=== PATIENT | female | born 1960 | race Caucasian/White ===

== ENCOUNTER 2018-07-20 11:07 | Day surgery (SDC) | payer OTHER ==
[2018-07-12 16:08] VITALS: BMI 28.3
[2018-07-20] MEDS ORDERED: PROPOFOL 20 ML ONE ×2 (12:48)
[2018-07-20 14:24] VITALS: TEMP 97.6
[2018-07-20 14:36] VITALS: BP 129/75; PULSE 62
--- NOTE | 2018-07-21 16:35 | PATH ---
Surgical Pathology Report Patient Name: ADRIAN REYES [facility]. Rec. #: [id number] /Age/Gender: 1960 (Age: 58) / F Account: [id number] Location: [facility] AMB[facility] Taken: 07/20/2018 Received: 07/20/2018 Reported: 07/21/2018 Physicians: Elina Steward M.D. Specimen(s) Received A: RIGHT COLON B: TRANSVERSE COLON C: TRANSVERSE COLON D: DESCENDING COLON E: RECTUM Clinical History Diarrhea Postoperative diagnosis: Polyp, diverticulosis, hemorrhoids Final Diagnosis A. RIGHT COLON, BIOPSY: COLONIC MUCOSA WITH REACTIVE LYMPHOID AGGREGATE. NO HISTOLOGIC EVIDENCE OF ACTIVE COLITIS. B. TRANSVERSE COLON, BIOPSY: COLONIC MUCOSA WITH FOCAL CRYPT ARCHITECTURAL DISTORTION AND REACTIVE LYMPHOID FOLLICLE. NO HISTOLOGIC EVIDENCE OF ACTIVE COLITIS. C. POLYP TRANSVERSE COLON, POLYPECTOMY: TUBULAR ADENOMA. D. DESCENDING COLON, BIOPSY: COLONIC MUCOSA WITH REACTIVE LYMPHOID AGGREGATE. NO HISTOLOGIC EVIDENCE OF ACTIVE COLITIS. E. RECTUM, BIOPSY: COLONIC MUCOSA WITH REACTIVE LYMPHOID AGGREGATE. NO EVIDENCE OF PROCTITIS. Electronically Signed Urbano Dey M.D. Gross Description A. Received in formalin, labeled "right colon" are 2 espinosa, irregular portions of soft tissue measuring 0.2 and 0.3 cm. in greatest dimension. The specimens are submitted in toto in one cassette. B. Received in formalin, labeled "transverse" is a espinosa, irregular portion of soft tissue measuring 0.3 cm. in greatest dimension. The specimen is submitted in toto in one cassette. C. Received in formalin, labeled "polyp transverse" are 2 espinosa, irregular portions of soft tissue measuring 0.3 and 0.4 cm. in greatest dimension. The specimens are submitted in toto in one cassette. D. Received in formalin, labeled "descending" are 2 espinosa, irregular portions of soft tissue measuring 0.2 and 0.3 cm. in greatest dimension. The specimens are submitted in toto in one cassette. E. Received in formalin, labeled "rectum" is a espinosa, irregular portion of soft tissue measuring 0.3 cm. in greatest dimension. The specimen is submitted in toto in one cassette. 07/20/2018 saudi07/20/2018
== END 2018-07-20 14:20 | disposition home or self-care (01) ==
LOC: FASU 11:07
PROVIDERS: ATTEND Internal Medicine Gastroenterology
PROC: 0DBM8ZX Excision of Descending Colon, Via Natural or Artificial Opening Endoscopic, Diagnostic (ICD-10-PCS; 2018-07-20)
PROC: 0DBN8ZX Excision of Sigmoid Colon, Via Natural or Artificial Opening Endoscopic, Diagnostic (ICD-10-PCS; 2018-07-20)
PROC: 0DBP8ZX Excision of Rectum, Via Natural or Artificial Opening Endoscopic, Diagnostic (ICD-10-PCS; 2018-07-20)
PROC: 0DBL8ZX Excision of Transverse Colon, Via Natural or Artificial Opening Endoscopic, Diagnostic (ICD-10-PCS; principal; 2018-07-20 12:54)
DX: Z12.11 Encounter for screening for malignant neoplasm of colon (principal); K57.30 Diverticulosis of large intestine without perforation or abscess without bleeding; D12.3 Benign neoplasm of transverse colon; K63.89 Other specified diseases of intestine; R19.7 Diarrhea, unspecified
CPT/HCPCS: 88305-TC

== ENCOUNTER 2018-09-08 17:20 | Emergency (ER) | payer OTHER ==
[2018-09-08 17:36] VITALS: BMI 29.2
[2018-09-08] MEDS ORDERED: ACETAMINOPHEN 1000 MG/100 ML VIAL (NON FORMULARY) IVPB ONE (17:40)
[2018-09-08] MEDS ORDERED: ONDANSETRON 4 MG/2 ML VIAL IVPB ONE (17:40)
[2018-09-08] MEDS ORDERED: FAMOTIDINE 20 MG/50 ML IVPB 20 MG/50 ML MG IVPB ONE ×2 (17:40→17:45)
[2018-09-08] MEDS ORDERED: SODIUM CHLORIDE 1,000 ML IV STA (17:40)
[2018-09-08] MEDS ORDERED: ACETAMINOPHEN INJECTION 100 ML IVPB ONE (17:45)
[2018-09-08] MEDS ORDERED: ONDANSETRON 4 MG/2 ML VIAL ONE (17:45)
[2018-09-08 17:56] LABS: BASO % 0.3 % (0-2.0); EOS % 1.2 % (0-4.5); HEMATOCRIT 47.5 % (32.4-45.2); HEMOGLOBIN 15.9 GM/dL (10.7-15.3); MCHC 33.4 g/dl (32.0-36.0); MEAN CELL VOLUME 89.8 fl (80-96); MEAN PLT VOLUME 8.6 fl (7.5-11.1); MONO % 6.9 % (3.8-10.2); NEUT % 65.6 % (42.8-82.8); PLATELET COUNT 245 K/MM3 (134-434); RBC 5.29 M/mm3 (3.60-5.2); RDW 13.2 % (11.6-15.6); WHITE BLOOD COUNT 7.5 K/mm3 (4.0-10.0)
--- NOTE | 2018-09-08 18:13 | PDOC ---
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 As per daughter, patient was started on augmentin after being diagnosed with sinusitis, stating she took her first dose x2 days ago. Patient reports waking in the middle of the night with multiple episodes of vomiting that has since resolved. She reports taking another dose of medication yesterday morning, stating she began to vomit shortly after that lasted all day, prompting her to come into the ED for further evaluation. Denies chest pain, Sob. Denies nausea, vomiting. Denies contact with sick individuals, out of state travelling. Denies fevers, chills. Denies dysuria, hematuria. Denies diarrhea, constipation. Denies any other symptoms. Allergies: Meloxicam, corn, egg, fish, Social history: No smoking. No alcohol. No illicit drugs. Surgical history: None PMD: Dr. Orellana <Freedom Pearce - Last Filed: 09/08/18 19:15> - General Chief Complaint: Nausea/Vomiting Stated Complaint: VOMITING Time Seen by Provider: 09/08/18 17:24 Past History - Past Medical History Anemia: No Asthma: Yes (allergy) Cancer: No Cardiac Disorders: Yes (stent x1) CVA: No COPD: No CHF: No Diabetes: No (borderline) GI Disorders: No Disorders: No HTN: No Hypercholesterolemia: Yes Liver Disease: No Seizures: No Thyroid Disease: No - Surgical History Abdominal Surgery: No Appendectomy: No Cardiac Surgery: Yes (stent placement) Cholecystectomy: No Lung Surgery: No Neurologic Surgery: No Orthopedic Surgery: No - Suicide/Smoking/Psychosocial Hx Smoking History: Former smoker Have you smoked in the past 12 months: No If you are a former smoker, when did you quit?: 5 years ago Information on smoking cessation initiated: No Hx Alcohol Use: No Drug/Substance Use Hx: No Substance Use Type: Alcohol <Arsenio Greenfield - Last Filed: 09/08/18 19:02> <Ramses,Freedom - Last Filed: 09/08/18 19:15> - Past Medical History Allergies/Adverse Reactions: Allergies Allergy/AdvReac Type Severity Reaction Status Date / Time corn Allergy Verified 09/08/18 17:34 egg Allergy Verified 09/08/18 17:34 Fish Containing Products Allergy Verified 09/08/18 17:34 meloxicam [From Mobic] AdvReac Verified 09/08/18 17:34 Home Medications: Ambulatory Orders Aspirin [ASA -] 81 mg PO DAILY 07/12/18 Levocetirizine Dihydrochloride [Xyzal] 5 mg PO DAILY 07/12/18 Metoprolol Succinate 12.5 mg PO DAILY 07/12/18 [place]-3S/Dha/Epa/Fish Oil [Fish Oil 1,200 mg Softgel] 1 each PO DAILY 07/12/18 Rosuvastatin Calcium [Crestor] 10 mg PO DAILY 07/12/18 Tizanidine HCl 2 mg PO DAILY 07/12/18 Albuterol Sulfate [Proventil HFA Inhaler -] 1 - 2 inh PO TID PRN 07/20/18 Alprazolam [Xanax] 0.5 mg PO ASDIR PRN 07/20/18 Cetirizine HCl [Zyrtec -] 10 mg PO DAILY PRN 07/20/18 Cholecalciferol (Vitamin D3) [Dialyvite Vitamin D3 Max] 50,000 unit PO WEEKLY Review of Systems - Review of Systems Able to Perform ROS?: Yes Comments:: 09/08/18 19:14 GENERAL/CONSTITUTIONAL: No fever or chills. No weakness. HEAD, EYES, EARS, NOSE AND THROAT: No change in vision. No ear pain or discharge. No sore throat. CARDIOVASCULAR: No chest pain or shortness of breath. RESPIRATORY: No cough, wheezing, or hemoptysis. GASTROINTESTINAL: No nausea, vomiting, diarrhea or constipation. GENITOURINARY: No dysuria, frequency, or change in urination. MUSCULOSKELETAL: No joint or muscle swelling or pain. No neck or back pain. SKIN: No rash NEUROLOGIC: No headache, vertigo, loss of consciousness, or change in strength/ sensation. ENDOCRINE: No increased thirst. No abnormal weight change. HEMATOLOGIC/LYMPHATIC: No anemia, easy bleeding, or history of blood clots. ALLERGIC/IMMUNOLOGIC: No hives or skin allergy. <RamsesFreedom - Last Filed: 09/08/18 19:15> *Physical Exam - Vital Signs Last Vital Signs Temp Pulse Resp BP Pulse Ox 98.1 F 83 18 113/95 100 09/08/18 17:32 09/08/18 17:32 09/08/18 17:32 09/08/18 17:32 09/08/18 17:32 <Arsenio Greenfield - Last Filed: 09/08/18 19:02> - Vital Signs Last Vital Signs Temp Pulse Resp BP Pulse Ox 98.1 F 83 18 113/95 100 09/08/18 17:32 09/08/18 17:32 09/08/18 17:32 09/08/18 17:32 09/08/18 17:32 - Physical Exam Comments: 09/08/18 19:14 GENERAL: Awake, alert, and fully oriented, in no acute distress HEAD: No signs of trauma EYES: PERRLA, EOMI, sclera anicteric, conjunctiva clear ENT: Auricles normal inspection, hearing grossly normal, nares patent, oropharynx clear without exudates. Moist mucosa NECK: Normal ROM, supple, no lymphadenopathy, JVD, or masses LUNGS: Breath sounds equal, clear to auscultation bilaterally. No wheezes, and no crackles HEART: Regular rate and rhythm, normal S1 and S2, no murmurs, rubs or gallops ABDOMEN: Soft, nontender, normoactive bowel sounds. No guarding, no rebound. No masses EXTREMITIES: Normal range of motion, no edema. No clubbing or cyanosis. No cords, erythema, or tenderness NEUROLOGICAL: Cranial nerves II through XII grossly intact. Normal speech, normal gait SKIN: Warm, Dry, normal turgor, no rashes or lesions noted. <RamsesFreedom - Last Filed: 09/08/18 19:15> Heart Score/ECG Review #1 ECG reviewed & interpreted by me at: 18:40 09/08/18 18:52 NSR 63, with PACS, incomplete RBBB, TWI III, T wave flat avF, QTC 417 msec <Arsenio Greenfield - Last Filed: 09/08/18 19:02> ED Treatment Course - LABORATORY CBC & Chemistry Diagram: 09/08/18 17:45 09/08/18 17:45 - ADDITIONAL ORDERS Additional order review: 09/08/18 17:45 RBC 5.29 H MCV 89.8 MCHC 33.4 RDW 13.2 MPV 8.6 Neutrophils % 65.6 Lymphocytes % 26.0 Monocytes % 6.9 Eosinophils % 1.2 Basophils % 0.3 - Medications Given in the ED: ED Medications Discontinued Medications Generic Name Dose Route Start Last Admin Trade Name Freq PRN Reason Stop Dose Admin Acetaminophen 1,000 mg 09/08/18 17:40 09/08/18 17:51 Ofirmev Injection - IVPB 09/08/18 17:41 1,000 mg ONCE ONE Administration Famotidine/Sodium Chloride 20 mg in 50 mls @ 100 mls/hr 09/08/18 17:40 17:51 Pepcid 20 Mg Premixed Ivpb - IVPB 09/08/18 18:09 100 mls/hr ONCE ONE Administration Ondansetron HCl 4 mg 09/08/18 17:40 09/08/18 17:51 Zofran Injection IVPB 09/08/18 17:41 4 mg ONCE ONE Administration <Arsenio Greenfield - Last Filed: 09/08/18 19:02> - LABORATORY CBC & Chemistry Diagram: 09/08/18 17:45 09/08/18 17:45 - ADDITIONAL ORDERS Additional order review: Laboratory Results 09/08/18 17:45 Sodium 137 Potassium 3.9 Chloride 101 Carbon Dioxide 26 Anion Gap 10 BUN 22 H Creatinine 0.8 Creat Clearance w eGFR > 60 Random Glucose 104 Calcium 9.6 Magnesium 2.1 Total Bilirubin 0.6 AST 8 L ALT 24 Alkaline Phosphatase 61 Creatine Kinase 55 Troponin I < 0.02 Total Protein 7.5 Albumin 4.0 Lipase 115 09/08/18 17:45 RBC 5.29 H MCV 89.8 MCHC 33.4 RDW 13.2 MPV 8.6 Neutrophils % 65.6 Lymphocytes % 26.0 Monocytes % 6.9 Eosinophils % 1.2 Basophils % 0.3 - Medications Given in the ED: ED Medications Discontinued Medications Generic Name Dose Route Start Last Admin Trade Name Freq PRN Reason Stop Dose Admin Acetaminophen 1,000 mg 09/08/18 17:40 09/08/18 17:51 Ofirmev Injection - IVPB 09/08/18 17:41 1,000 mg ONCE ONE Administration Famotidine/Sodium Chloride 20 mg in 50 mls @ 100 mls/hr 09/08/18 17:40 17:51 Pepcid 20 Mg Premixed Ivpb - IVPB 09/08/18 18:09 100 mls/hr ONCE ONE Administration Sodium Chloride 1,000 mls @ 1,000 mls/hr 09/08/18 17:40 09/08/18 17:51 Normal Saline - IV 09/08/18 18:39 1,000 mls/hr ASDIR STA Administration Ketorolac Tromethamine 30 mg 09/08/18 18:29 09/08/18 18:31 Toradol Injection - IVPUSH 09/08/18 18:30 30 mg ONCE ONE Administration Ondansetron HCl 4 mg 09/08/18 17:40 09/08/18 17:51 Zofran Injection IVPB 09/08/18 17:41 4 mg ONCE ONE Administration <Freedom Pearce - Last Filed: 09/08/18 19:15> Medical Decision Making - Medical Decision Making 09/08/18 18:11 A portion of this note was documented by scribe services under my direction. I have reviewed the details of the note, within reason, and agree with the documentation with the following case summary and management plan written by me. Patient treated in the ED. Nursing notes are reviewed and incorporated into the medical decision-making. Vital signs reviewed. Peripheral IV access obtained by the nurse, laboratory studies are drawn and sent, reviewed and interpreted by myself. Vital Signs Temp Pulse Resp BP Pulse Ox 98.1 F 83 18 113/95 100 09/08/18 17:32 09/08/18 17:32 09/08/18 17:32 09/08/18 17:32 09/08/18 17:32 58-year-old female patient with history of coronary disease with stent presents with nausea vomiting. The patient reported 2 days ago that she was initiated on Augmentin for sinusitis. She had taken her first dose 2 days ago and woke up in the middle night with persistent vomiting that resolved. The patient again took another dose yesterday morning and says "he vomited all day until today. She denies chest pain or short of breath. Denies sick contacts or recent travels. Patient is not aware if she has prior ALLERGIES to medications. No fevers or chills. No dysuria. Denies abdominal pain. It is possible that the patient may be having ALLERGIC reaction to Augmentin. However, with the differential is gastroenteritis. Less likely to be acute coronary syndrome but given that she has chronic disease, we'll send troponin and EKG. Supportive care and IV fluids and reassess. If the workup is negative the patient reports from better, the patient may be eligible for outpatient management. 09/08/18 19:10 CBC, BMP 09/08/18 17:45 09/08/18 17:45 CMP Sodium 137 mmol/L (136-145) 09/08/18 17:45 Potassium 3.9 mmol/L (3.5-5.1) 09/08/18 17:45 Chloride 101 mmol/L (98-107) 09/08/18 17:45 Carbon Dioxide 26 mmol/L (21-32) 09/08/18 17:45 Anion Gap 10 MMOL/L (8-16) 09/08/18 17:45 BUN 22 mg/dL (7-18) H 09/08/18 17:45 Creatinine 0.8 mg/dL (0.55-1.3) 09/08/18 17:45 Creat Clearance w eGFR > 60 (>60) 09/08/18 17:45 Random Glucose 104 mg/dL (74-106) 09/08/18 17:45 Calcium 9.6 mg/dL (8.5-10.1) 09/08/18 17:45 Magnesium 2.1 mg/dL (1.8-2.4) 09/08/18 17:45 Total Bilirubin 0.6 mg/dL (0.2-1) 09/08/18 17:45 AST 8 U/L (15-37) L 09/08/18 17:45 ALT 24 U/L (13-61) 09/08/18 17:45 Alkaline Phosphatase 61 U/L (45-117) 09/08/18 17:45 Creatine Kinase 55 IU/L (26-192) 09/08/18 17:45 Troponin I < 0.02 ng/ml (0.00-0.05) 09/08/18 17:45 Total Protein 7.5 g/dl (6.4-8.2) 11/08/18 17:45 Albumin 4.0 g/dl (3.4-5.0) 09/08/18 17:45 Lipase 115 U/L (73-393) 09/08/18 17:45 Pt complains of headache not resolved with medications here. Could this be from the vomiting? However, with new onset headache and vomiting, will need to investigate neurological causes. Will obtain head CT. Treat with dexamethasone (this will also help with allergic rx), and reglan. If head CT is negative, and pt feels better with meds, pt may be able to go home and will advise pt to stop augmentin. Given 2 days of symptoms, this is likely viral sinusitis, if this is indeed sinusitis. Patient signed out to Dr. Jackman for further management and disposition. <Arsenio Greenfield - Last Filed: 09/08/18 19:02> *DC/Admit/Observation/Transfer <Arsenio Greenfield - Last Filed: 09/08/18 19:02> - Attestations Scribe Attestion: 09/08/18 19:15 Documentation prepared by Freedom Pearce, acting as medical screener for Arsenio Greenfield MD. <Freedom Pearce - Last Filed: 09/08/18 19:15> - Referrals Referrals: Travis Urias [Primary Care Provider] - - Patient Instructions - Post Discharge Activity
[2018-09-08] MEDS ORDERED: KETOROLAC TROMETHAMINE 30 MG/1 ML VIAL IVPUSH ONE (18:29)
[2018-09-08] MEDS ORDERED: KETOROLAC TROMETHAMINE 30 MG/1 ML VIAL ONE (18:30)
[2018-09-08 18:34] LABS: ALK PHOS 61 U/L (45-117); ANION GAP 10 MMOL/L (8-16); BILIRUBIN,TOTAL 0.6 mg/dL (0.2-1); BLOOD UREA NITROGEN 22 mg/dL (7-18); CALCIUM 9.6 mg/dL (8.5-10.1); CHLORIDE 101 mmol/L (98-107); CO2 26 mmol/L (21-32); CREATININE 0.8 mg/dL (0.55-1.3); GLUCOSE,RANDOM 104 mg/dL (74-106); LIPASE 115 U/L (73-393); MAGNESIUM 2.1 mg/dL (1.8-2.4); POTASSIUM 3.9 mmol/L (3.5-5.1); SGOT/AST 8 U/L (15-37); SGPT/ALT 24 U/L (13-61); SODIUM 137 mmol/L (136-145); TOT PROT 7.5 g/dl (6.4-8.2)
[2018-09-08] MEDS ORDERED: DEXAMETHASONE SOD PHOSPHATE 20 MG/5 ML VIAL IVPB ONE (19:01)
[2018-09-08] MEDS ORDERED: METOCLOPRAMIDE HCL INJECTION 10 MG/2 ML VIAL IVPUSH ONE (19:01)
[2018-09-08] MEDS ORDERED: METOCLOPRAMIDE HCL INJECTION 10 MG/2 ML VIAL ONE (19:04)
[2018-09-08] MEDS ORDERED: DEXAMETHASONE SOD PHOSPHATE 10 MG/1 ML VIAL ONE (19:04)
--- NOTE | 2018-09-08 19:58 | PDOC ---
*Physical Exam - Vital Signs Last Vital Signs Temp Pulse Resp BP Pulse Ox 98.1 F 83 18 113/95 100 09/08/18 17:32 09/08/18 17:32 09/08/18 17:32 09/08/18 17:32 09/08/18 17:32 - Physical Exam Comments: 09/08/18 19:51 Vital signs normal Afebrile, alert seated in stretcher smiling and conversant Neck is supple NEURO: Mental status: The patient is alert and oriented x3. Cranial nerves: Cranial nerves II through XII are intact Motor: The upper extremities are 5 over 5 in all muscle groups. The lower extremities are 5 over 5 in all muscle groups. Sensation: Sensation is intact to light touch throughout. Gait: Normal. ED Treatment Course - LABORATORY CBC & Chemistry Diagram: 09/08/18 17:45 09/08/18 17:45 - ADDITIONAL ORDERS Additional order review: Laboratory Results 09/08/18 17:45 Sodium 137 Potassium 3.9 Chloride 101 Carbon Dioxide 26 Anion Gap 10 BUN 22 H Creatinine 0.8 Creat Clearance w eGFR > 60 Random Glucose 104 Calcium 9.6 Magnesium 2.1 Total Bilirubin 0.6 AST 8 L ALT 24 Alkaline Phosphatase 61 Creatine Kinase 55 Troponin I < 0.02 Total Protein 7.5 Albumin 4.0 Lipase 115 09/08/18 17:45 RBC 5.29 H MCV 89.8 MCHC 33.4 RDW 13.2 MPV 8.6 Neutrophils % 65.6 Lymphocytes % 26.0 Monocytes % 6.9 Eosinophils % 1.2 Basophils % 0.3 - Medications Given in the ED: ED Medications Discontinued Medications Generic Name Dose Route Start Last Admin Trade Name Lyubov PRN Reason Stop Dose Admin Acetaminophen 1,000 mg 09/08/18 17:40 09/08/18 17:51 Ofirmev Injection - IVPB 09/08/18 17:41 1,000 mg ONCE ONE Administration Dexamethasone Sodium Phosphate 10 mg 09/08/18 19:01 09/08/18 19:23 Decadron Injection - IVPB 09/08/18 19:02 10 mg ONCE ONE Administration Famotidine/Sodium Chloride 20 mg in 50 mls @ 100 mls/hr 09/08/18 17:40 17:51 Pepcid 20 Mg Premixed Ivpb - IVPB 09/08/18 18:09 100 mls/hr ONCE ONE Administration Sodium Chloride 1,000 mls @ 1,000 mls/hr 09/08/18 17:40 09/08/18 17:51 Normal Saline - IV 09/08/18 18:39 1,000 mls/hr ASDIR STA Administration Ketorolac Tromethamine 30 mg 09/08/18 18:29 09/08/18 18:31 Toradol Injection - IVPUSH 09/08/18 18:30 30 mg ONCE ONE Administration Metoclopramide HCl 10 mg 09/08/18 19:01 09/08/18 19:23 Reglan Injection - IVPUSH 09/08/18 19:02 10 mg ONCE ONE Administration Ondansetron HCl 4 mg 09/08/18 17:40 09/08/18 17:51 Zofran Injection IVPB 09/08/18 17:41 4 mg ONCE ONE Administration Medical Decision Making - Medical Decision Making 09/08/18 19:51 Received signout On this 58-year-old female who presented with headache and vomiting after taking Augmentin for 2 days for presumed sinusitis, presented for evaluation. Labs performed were normal, plan was to check CT given headache in the setting of vomiting to rule out bleed and discharge if negative. CT negative for acute pathology, patient feels well, is at bedside with her family. Her sinusitis symptoms are returning since stopping the Augmentin, will change prescription to azithromycin, follow up with ENT, understands return criteria. *DC/Admit/Observation/Transfer Diagnosis at time of Disposition: Sinusitis Qualifiers: Sinusitis location: frontal Chronicity: acute Recurrence: not specified as recurrent Qualified Code(s): J01.10 - Acute frontal sinusitis, unspecified - Discharge Dispostion Disposition: HOME Condition at time of disposition: Improved - Prescriptions Prescriptions: Azithromycin [Zithromax 250mg Tablets -] 250 mg PO UTDICT #6 tab - Referrals Referrals: Travis Urias [Primary Care Provider] - - Patient Instructions Printed Discharge Instructions: DI for Sinusitis Additional Instructions: Activity as tolerated. Stay hydrated. Tylenol 1000 mg every 8 hours as needed for pain. You may have had a side effect from Augmentin. Stop Augmentin and take Azithromycin as prescribed as a new antibiotic for your sinusitis. Blood tests and a CT scan of your head showed no acute abnormalities today. Continue your medications as previously prescribed by your physician. You should follow up with your primary doctor and an ENT specialist as soon as possible regarding today's emergency department visit. Return to the emergency department for any new or concerning symptoms, particularly persistent or worsening vomiting or headache, facial swelling or pain, fevers or chills, vision changes or focal weakness or neck stiffness. - Post Discharge Activity
[2018-09-08 20:08] VITALS: BP 125/67; PULSE 59; TEMP 97.9
--- NOTE | 2018-09-09 07:41 | EKG ---
Test Reason : Blood Pressure : / mmHG Vent. Rate : 063 BPM Atrial Rate : 063 BPM P-R Int : 158 ms QRS Dur : 096 ms QT Int : 408 ms P-R-T Axes : 007 -16 001 degrees QTc Int : 417 ms POOR DATA QUALITY, INTERPRETATION MAY BE ADVERSELY AFFECTED SINUS RHYTHM WITH PREMATURE ATRIAL COMPLEXES INCOMPLETE RIGHT BUNDLE BRANCH BLOCK NO PREVIOUS ECGS AVAILABLE Confirmed by NAILA SEGURA MD ([id number]) on 09/09/2018 7:41:28 AM Referred By: Confirmed By:NAILA SEGURA MD
== END 2018-09-08 20:02 | disposition home or self-care (01) ==
LOC: JER 17:20
PROC: 3E033GC Introduction of Other Therapeutic Substance into Peripheral Vein, Percutaneous Approach (ICD-10-PCS; principal; 2018-09-08)
PROC: 3E0333Z Introduction of Anti-inflammatory into Peripheral Vein, Percutaneous Approach (ICD-10-PCS; 2018-09-08)
PROC: 3E0333Z Introduction of Anti-inflammatory into Peripheral Vein, Percutaneous Approach (ICD-10-PCS; 2018-09-08)
PROC: 3E033NZ Introduction of Analgesics, Hypnotics, Sedatives into Peripheral Vein, Percutaneous Approach (ICD-10-PCS; 2018-09-08)
PROC: 3E033GC Introduction of Other Therapeutic Substance into Peripheral Vein, Percutaneous Approach (ICD-10-PCS; 2018-09-08)
PROC: 3E0333Z Introduction of Anti-inflammatory into Peripheral Vein, Percutaneous Approach (ICD-10-PCS; 2018-09-08)
DX: J01.10 Acute frontal sinusitis, unspecified (principal)
CPT/HCPCS: 36415; 70450-TC; 80053; 82550; 83690; 83735; 84484; 85025; 93005; 93010; 99284-25; J0131; J7030